=== PATIENT | female | born 1930 | race Caucasian/White ===

== ENCOUNTER → 2016-08-13 | Outpatient (CLI) | payer MEDICARE, BC ==
[~2016-08-13] MED LIST: AMLODIPINE BESY10 MG PO; ASPIRIN 81M81 MG/TA2 PO; BYSTOLIC10 MG PO; CALCARB 600 W/V1 TA1 PO; CATAPRES 0.1MG0.1 MG PO; CLONIDINE0.1 MG PO; COLACE 100100 MG/CAP PO; EUCERIN1 CRE TP; EXELON4.6 MG/24 TD; EXELON9.5 MG/21 TD; FOSAMAX 70MG TA70 MG PO; GOOD NEIGHBOR325 MG PO; HECTOROL PO; HYDROCHLOROTH12.5 M1 PO; LASIX20 MG PO; LEVOTHROID0.05 MG PO; LEVOTHYROXIN0.075 MG PO; LEXAPRO20 MG PO; LIPITOR 40MG TA40 MG PO; LISINOPRIL20 MG PO; LISINOPRIL40 MG PO; NORVASC 10MG10 MG PO; OMEPRAZOLE20 MG PO; PRINIVIL40 MG PO; TEKTURNA150 MG PO; TYLENOL 325MG325 MG PO; [UNRECOGNIZED DRUG - OTHER] CHEW
== END ==
LOC: LAB 07:22
DX: N18.4 Chronic kidney disease, stage 4 (severe) (principal); N25.81 Secondary hyperparathyroidism of renal origin

== ENCOUNTER 2016-08-29 15:51 | Emergency (ER) | payer MEDICARE, BC ==
[~2016-08-29 15:51] MED LIST changes: -AMLODIPINE BESY10 MG PO; -CATAPRES 0.1MG0.1 MG PO; -EUCERIN1 CRE TP; -HECTOROL PO; -TYLENOL 325MG325 MG PO
[2016-08-29] MEDS ORDERED: EXELON9.5 MG/21 TD (16:53)
[2016-08-29] MEDS ORDERED: HECTOROL PO (16:53)
[2016-08-29] MEDS ORDERED: AMLODIPINE BESY10 MG PO (16:54)
[2016-08-29] MEDS ORDERED: EUCERIN1 CRE TP (16:55)
[2016-08-29] MEDS ORDERED: TYLENOL 325MG325 MG PO ×2 (16:55→16:56)
[2016-08-29] MEDS ORDERED: CATAPRES 0.1MG0.1 MG PO (16:56)
== END 2016-08-29 18:08 | disposition home or self-care (01) ==
LOC: ED 15:51
DX: S00.83XA Contusion of other part of head, initial encounter (principal); F03.90 Unspecified dementia, unspecified severity, without behavioral disturbance, psychotic disturbance, mood disturbance, and anxiety; W19.XXXA Unspecified fall, initial encounter; Y92.018 Other place in single-family (private) house as the place of occurrence of the external cause

== ENCOUNTER → 2016-12-15 | Outpatient (CLI) | payer MEDICARE, BC, MEDICAID ==
[2016-08-29 18:07] VITALS: BP 142/82
[~2016-12-15] MED LIST changes: +AMLODIPINE BESY10 MG PO; +CATAPRES 0.1MG0.1 MG PO; +EUCERIN1 CRE TP; +HECTOROL PO; +TYLENOL 325MG325 MG PO
== END ==
LOC: LAB 07:51
DX: N18.4 Chronic kidney disease, stage 4 (severe) (principal)

== ENCOUNTER → 2017-06-27 | Outpatient (CLI) | payer MEDICARE, BC, MEDICAID ==
[2016-08-29 18:07] VITALS: BP 142/82
[2017-06-27 08:06] LABS: BUN/CREATININE RATIO 21.6 (6.0-26.0); CALCIUM 9.6 mg/dL (8.4-10.2); POTASSIUM 4.2 mmol/L (3.6-5.0)
== END ==
LOC: LAB 07:00
PROVIDERS: Family Medicine
DX: I50.32 Chronic diastolic (congestive) heart failure (principal)

== ENCOUNTER 2017-09-30 09:14 | Emergency (ER) | payer MEDICARE, BC, MEDICAID ==
[~2017-09-30] VITALS: Wt 51.4 kg
[2017-09-30] MEDS ORDERED: LIPITOR20 M2 PO (09:54)
[2017-09-30] MEDS ORDERED: LEXAPRO 10MG10 MG PO (09:54)
[2017-09-30] MEDS ORDERED: GOOD SENSE400 MG/5 M PO (09:56)
[2017-09-30] MEDS ORDERED: VIACTIV PO (09:57)
[2017-09-30] MEDS ORDERED: THROAT DROPS6 MG MM (09:57)
[2017-09-30] MEDS ORDERED: MACROBID 100 M100 MG PO (09:58)
[2017-09-30 10:05] LABS: URINE APPEARANCE CLOUDY; URINE BILIRUBIN NEGATIVE (NEGATIVE); URINE BLOOD 250 ery/uL (NEGATIVE); URINE COLOR YELLOW; URINE GLUCOSE NEGATIVE (NEGATIVE); URINE KETONE NEGATIVE (NEGATIVE); URINE LEUKOCYTE ESTERASE 2+ (NEGATIVE); URINE NITRATE POSITIVE (NEGATIVE); URINE PROTEIN(semi-quant) 2+ mg/dL (NEGATIVE); URINE UROBILINOGEN NORMAL (NORMAL)
[2017-09-30 10:06] LABS: URINE WBC >50 /hpf (0-3)
[2017-09-30 10:08] LABS: HEMATOCRIT 29.9 % (37.0-47.0); MEAN CELL VOLUME 95 fl (78-100); MEAN CORPUSCULAR HEMOGLOBIN 29 pg (27-31); MEAN CORPUSCULAR HGB CONC 30 g/dL (33-37); MEAN PLATELET VOLUME 9.8 fl (7.4-10.4); PLATELET COUNT 269 K/mm3 (130-400); RED BLOOD COUNT 3.16 M/mm3 (4.10-5.30); RED CELL DISTRIBUTION WIDTH 14.8 % (11.5-14.5); WHITE BLOOD COUNT 10.2 K/mm3 (4.8-10.8)
[2017-09-30 10:21] LABS: ALBUMIN 3.9 g/dL (3.5-5.0); BUN/CREATININE RATIO 23.8 (6.0-26.0); CALCIUM 9.8 mg/dL (8.4-10.2); POTASSIUM 4.8 mmol/L (3.6-5.0); TOTAL BILIRUBIN 0.4 mg/dL (0.2-1.3); TOTAL PROTEIN 7.7 g/dL (6.3-8.2)
[2017-09-30 10:30] LABS: BAND 2 % (0-10); LYMPHOCYTE 3 % (20-51); MONOCYTE 4 % (3-10); NEUTROPHILS 91 % (42-75)
[2017-09-30 13:30] VITALS: BP 146/51
== END 2017-09-30 13:30 | disposition short-term general hospital (02) ==
LOC: ED 09:14
PROVIDERS: Nurse Practitioner
DX: N39.0 Urinary tract infection, site not specified (principal); N19 Unspecified kidney failure; I11.0 Hypertensive heart disease with heart failure; I50.9 Heart failure, unspecified; F03.90 Unspecified dementia, unspecified severity, without behavioral disturbance, psychotic disturbance, mood disturbance, and anxiety; E78.5 Hyperlipidemia, unspecified; E03.9 Hypothyroidism, unspecified; M81.0 Age-related osteoporosis without current pathological fracture; Z66 Do not resuscitate; Z87.440 Personal history of urinary (tract) infections; Z79.82 Long term (current) use of aspirin
CPT/HCPCS: J0696; J7040

== ENCOUNTER → 2017-11-03 | Outpatient (CLI) | payer MEDICARE, BC, MEDICAID ==
[~2017-11-03] MED LIST changes: +GOOD SENSE400 MG/5 M PO; +LEXAPRO 10MG10 MG PO; +LIPITOR20 M2 PO; +MACROBID 100 M100 MG PO; +THROAT DROPS6 MG MM; +VIACTIV PO
[2017-11-03 07:46] LABS: BUN/CREATININE RATIO 17.2 (6.0-26.0); CALCIUM 9.1 mg/dL (8.4-10.2); POTASSIUM 4.5 mmol/L (3.6-5.0)
== END ==
LOC: LAB 06:35
PROVIDERS: Family Medicine
DX: R79.89 Other specified abnormal findings of blood chemistry (principal)

== ENCOUNTER → 2018-01-14 | Outpatient (CLI) | payer MEDICARE, BC, MEDICAID ==
[2018-01-14 19:41] LABS: PH-URINE 8.5 (5.0 - 8.0); URINE APPEARANCE CLOUDY; URINE BILIRUBIN NEGATIVE (NEGATIVE); URINE BLOOD 250 ery/uL (NEGATIVE); URINE COLOR YELLOW; URINE GLUCOSE NEGATIVE (NEGATIVE); URINE KETONE NEGATIVE (NEGATIVE); URINE LEUKOCYTE ESTERASE 2+ (NEGATIVE); URINE NITRATE NEGATIVE (NEGATIVE); URINE PROTEIN(semi-quant) 2+ mg/dL (NEGATIVE); URINE UROBILINOGEN NORMAL (NORMAL); URINE WBC >50 /hpf (0-3)
[2018-01-14 19:42] LABS: URINE MUCUS PRESENT (NOT PRESENT)
== END ==
LOC: LAB 15:45
PROVIDERS: Family Medicine
DX: N39.0 Urinary tract infection, site not specified (principal); R31.9 Hematuria, unspecified

== ENCOUNTER → 2018-02-02 | Outpatient (CLI) | payer MEDICARE, BC, MEDICAID ==
[2018-02-02 06:18] LABS: HEMOGLOBIN 9.9 g/dL (12.5-16.0); MEAN PLATELET VOLUME 10.2 fl (7.4-10.4); RED BLOOD COUNT 3.38 M/mm3 (4.10-5.30); RED CELL DISTRIBUTION WIDTH 13.9 % (11.5-14.5); WHITE BLOOD COUNT 6.1 K/mm3 (4.8-10.8)
[2018-02-02 06:19] LABS: PH-URINE 6.5 (5.0 - 8.0); URINE APPEARANCE CLOUDY; URINE BILIRUBIN NEGATIVE (NEGATIVE); URINE BLOOD 50 ery/uL (NEGATIVE); URINE COLOR YELLOW; URINE GLUCOSE NEGATIVE (NEGATIVE); URINE KETONE NEGATIVE (NEGATIVE); URINE LEUKOCYTE ESTERASE 2+ (NEGATIVE); URINE NITRATE NEGATIVE (NEGATIVE); URINE PROTEIN(semi-quant) 2+ mg/dL (NEGATIVE); URINE UROBILINOGEN NORMAL (NORMAL); URINE WBC >50 /hpf (0-3)
[2018-02-02 06:32] LABS: BUN/CREATININE RATIO 28.2 (6.0-26.0); CALCIUM 8.7 mg/dL (8.4-10.2); POTASSIUM 4.1 mmol/L (3.6-5.0)
== END ==
LOC: LAB 05:45
PROVIDERS: Nurse Practitioner Family
DX: N18.9 Chronic kidney disease, unspecified (principal); D64.9 Anemia, unspecified; I50.32 Chronic diastolic (congestive) heart failure; N39.0 Urinary tract infection, site not specified

== ENCOUNTER → 2018-06-28 | Outpatient (CLI) | payer MEDICARE, BC, MEDICAID ==
[2018-06-28 06:46] LABS: CALCIUM 9.4 mg/dL (8.4-10.2)
== END ==
LOC: LAB 05:40
PROVIDERS: Family Medicine
DX: N18.9 Chronic kidney disease, unspecified (principal)

== ENCOUNTER → 2018-07-13 | Outpatient (CLI) | payer MEDICARE, BC, MEDICAID ==
[2018-07-13 05:54] LABS: CALCIUM 9.2 mg/dL (8.4-10.2); POTASSIUM 3.9 mmol/L (3.6-5.0)
== END ==
LOC: LAB 05:15
PROVIDERS: Family Medicine
DX: R79.89 Other specified abnormal findings of blood chemistry (principal)

== ENCOUNTER → 2018-08-14 | Outpatient (CLI) | payer MEDICARE, BC, MEDICAID | LOC: RAD 13:51 | DX: I70.0 Atherosclerosis of aorta (principal); I25.10 Atherosclerotic heart disease of native coronary artery without angina pectoris; R91.8 Other nonspecific abnormal finding of lung field ==

== ENCOUNTER → 2018-08-24 | Outpatient (CLI) | payer MEDICARE, BC, MEDICAID ==
[2018-08-24 07:56] LABS: CALCIUM 8.9 mg/dL (8.4-10.2); POTASSIUM 4.5 mmol/L (3.6-5.0)
== END ==
LOC: LAB 07:32
PROVIDERS: Internal Medicine
DX: N18.3 Chronic kidney disease, stage 3 (moderate) (principal)

== ENCOUNTER 2018-12-07 14:42 | Emergency (ER) | payer MEDICARE, BC, MEDICAID ==
[2018-12-07] MEDS ORDERED: ALBUTEROL1.25 MG/3 IH (14:54)
[2018-12-07] MEDS ORDERED: ATORVASTATIN CA40 MG PO (14:55)
[2018-12-07 15:19] LABS: EOS # 0.4 (0.04-0.40); EOS % 6.5 % (1.0-5.0); HEMATOCRIT 39.2 % (37.0-47.0); HEMOGLOBIN 12.1 g/dL (12.5-16.0); LYMPH# 1.2 (1.50-4.00); MEAN CELL VOLUME 92 fl (78-100); MEAN CORPUSCULAR HEMOGLOBIN 28 pg (27-31); MEAN CORPUSCULAR HGB CONC 31 g/dL (33-37); MEAN PLATELET VOLUME 9.6 fl (7.4-10.4); MONO # 0.7 (0.20-0.80); NEU # 4.3 (1.40-6.50); PLATELET COUNT 228 K/mm3 (130-400); RED BLOOD COUNT 4.27 M/mm3 (4.10-5.30); RED CELL DISTRIBUTION WIDTH 13.9 % (11.5-14.5); WHITE BLOOD COUNT 6.6 K/mm3 (4.8-10.8)
[2018-12-07 15:30] LABS: CALCIUM 10.1 mg/dL (8.3-10.5); POTASSIUM 4.4 mmol/L (3.5-5.1); TOTAL BILIRUBIN 0.3 mg/dL (0.2-1.2); TOTAL PROTEIN 7.8 g/dL (6.2-8.1)
[2018-12-07 17:13] VITALS: BP 160/69
== END 2018-12-07 17:11 ==
LOC: ED 14:42
PROVIDERS: Nurse Practitioner Family
DX: R05 Cough (principal); I50.9 Heart failure, unspecified; I13.0 Hypertensive heart and chronic kidney disease with heart failure and stage 1 through stage 4 chronic kidney disease, or unspecified chronic kidney disease; N18.9 Chronic kidney disease, unspecified; E78.5 Hyperlipidemia, unspecified; E03.9 Hypothyroidism, unspecified; K21.9 Gastro-esophageal reflux disease without esophagitis; F03.90 Unspecified dementia, unspecified severity, without behavioral disturbance, psychotic disturbance, mood disturbance, and anxiety; Z86.73 Personal history of transient ischemic attack (TIA), and cerebral infarction without residual deficits; Z98.890 Other specified postprocedural states; Z79.82 Long term (current) use of aspirin

== ENCOUNTER 2019-01-07 14:24 | Emergency (ER) | payer MEDICARE, BC, MEDICAID ==
[~2019-01-07] VITALS: Ht 142.2 cm; Wt 59.2 kg
[~2019-01-07 14:24] MED LIST changes: +ALBUTEROL1.25 MG/3 IH; +ATORVASTATIN CA40 MG PO
[2019-01-07] MEDS ORDERED: ASPIRIN E.C. 8181 MG (14:56)
[2019-01-07] MEDS ORDERED: MIRALAX17 GM PO (14:58)
[2019-01-07] MEDS ORDERED: LEXAPRO5 MG PO (14:58)
[2019-01-07] MEDS ORDERED: CALCIUM + VIT1 EACH PO (14:59)
[2019-01-07] MEDS ORDERED: SILACE60 MG/15 M PO (15:00)
[2019-01-07] MEDS ORDERED: CATAPRES0.1 M1 PO (15:01)
[2019-01-07 15:46] LABS: HEMATOCRIT 33.5 % (37.0-47.0); HEMOGLOBIN 10.5 g/dL (12.5-16.0); MEAN CELL VOLUME 92 fl (78-100); MEAN CORPUSCULAR HEMOGLOBIN 29 pg (27-31); MEAN CORPUSCULAR HGB CONC 31 g/dL (33-37); MEAN PLATELET VOLUME 9.7 fl (7.4-10.4); PLATELET COUNT 241 K/mm3 (130-400); RED BLOOD COUNT 3.66 M/mm3 (4.10-5.30); WHITE BLOOD COUNT 13.1 K/mm3 (4.8-10.8)
[2019-01-07 15:56] LABS: ALBUMIN 3.7 g/dL (3.4-4.8)
[2019-01-07 15:58] LABS: CALCIUM 9.4 mg/dL (8.3-10.5)
[2019-01-07 15:59] LABS: TOTAL PROTEIN 7.5 g/dL (6.2-8.1)
[2019-01-07 16:01] LABS: TOTAL BILIRUBIN 0.4 mg/dL (0.2-1.2)
[2019-01-07 16:07] LABS: LYMPHOCYTE 6 % (20-51); MONOCYTE 5 % (3-10); NEUTROPHILS 88 % (42-75)
[2019-01-07] MEDS ORDERED: CEFDINIR300 MG PO (16:52)
[2019-01-07 17:07] VITALS: BP 129/69
== END 2019-01-07 17:17 | disposition home or self-care (01) ==
LOC: ED 14:24
PROVIDERS: Family Medicine
DX: J40 Bronchitis, not specified as acute or chronic (principal); I50.9 Heart failure, unspecified; F03.90 Unspecified dementia, unspecified severity, without behavioral disturbance, psychotic disturbance, mood disturbance, and anxiety; I10 Essential (primary) hypertension; Z90.710 Acquired absence of both cervix and uterus; Z98.890 Other specified postprocedural states; Z79.82 Long term (current) use of aspirin
CPT/HCPCS: J0696; J1940

== ENCOUNTER → 2019-01-10 | Outpatient (CLI) | payer MEDICARE, BC ==
[2019-01-07 17:07] VITALS: BP 129/69
[~2019-01-10] MED LIST changes: +ASPIRIN E.C. 8181 MG; +CALCIUM + VIT1 EACH PO; +CATAPRES0.1 M1 PO; +CEFDINIR300 MG PO; +LEXAPRO5 MG PO; +MIRALAX17 GM PO; +SILACE60 MG/15 M PO
[2019-01-11 00:23] LABS: CALCIUM 9.2 mg/dL (8.3-10.5)
[2019-01-11 00:36] LABS: HEMATOCRIT 29.6 % (37.0-47.0); HEMOGLOBIN 9.2 g/dL (12.5-16.0); MEAN PLATELET VOLUME 9.5 fl (7.4-10.4); RED BLOOD COUNT 3.23 M/mm3 (4.10-5.30); RED CELL DISTRIBUTION WIDTH 13.8 % (11.5-14.5); WHITE BLOOD COUNT 4.6 K/mm3 (4.8-10.8)
== END ==
LOC: LAB 23:43
PROVIDERS: Family Medicine
DX: I50.9 Heart failure, unspecified (principal); J20.9 Acute bronchitis, unspecified; F03.90 Unspecified dementia, unspecified severity, without behavioral disturbance, psychotic disturbance, mood disturbance, and anxiety

== ENCOUNTER 2019-02-24 12:51 | Emergency (ER) | payer MEDICARE, BC ==
[2019-02-24 13:30] LABS: HEMATOCRIT 38.2 % (37.0-47.0); HEMOGLOBIN 12.1 g/dL (12.5-16.0); MEAN CELL VOLUME 90 fl (78-100); MEAN CORPUSCULAR HEMOGLOBIN 29 pg (27-31); MEAN CORPUSCULAR HGB CONC 32 g/dL (33-37); MEAN PLATELET VOLUME 9.8 fl (7.4-10.4); PLATELET COUNT 289 K/mm3 (130-400); RED BLOOD COUNT 4.24 M/mm3 (4.10-5.30); RED CELL DISTRIBUTION WIDTH 14.9 % (11.5-14.5)
[2019-02-24 13:51] LABS: LYMPHOCYTE 5 % (20-51); MONOCYTE 5 % (3-10); NEUTROPHILS 90 % (42-75)
[2019-02-24 13:59] LABS: ALBUMIN 4.1 g/dL (3.4-4.8); POTASSIUM 4.2 mmol/L (3.5-5.1)
[2019-02-24 14:00] LABS: CALCIUM 10.1 mg/dL (8.3-10.5)
[2019-02-24 14:01] LABS: TOTAL PROTEIN 8.5 g/dL (6.2-8.1)
[2019-02-24 14:03] LABS: TOTAL BILIRUBIN 0.5 mg/dL (0.2-1.2)
[2019-02-24] MEDS ORDERED: MORGIDOX 1X100100 MG PO (16:20)
[2019-02-24] MEDS ORDERED: AUGMENTIN 500-1 EACH PO (16:20)
[2019-02-24] MEDS ORDERED: PREDNISONE10 MG PO (16:24)
[2019-02-24 17:00] VITALS: BP 134/54
== END 2019-02-24 17:00 | disposition home or self-care (01) ==
LOC: ED 12:51
PROVIDERS: Family Medicine
DX: J18.9 Pneumonia, unspecified organism (principal); R13.10 Dysphagia, unspecified; F03.90 Unspecified dementia, unspecified severity, without behavioral disturbance, psychotic disturbance, mood disturbance, and anxiety; I11.0 Hypertensive heart disease with heart failure; I50.9 Heart failure, unspecified

== ENCOUNTER → 2019-03-05 | Day surgery (SDC) | payer MEDICARE, BC ==
[2019-02-24 17:00] VITALS: BP 134/54
[~2019-03-05] MED LIST changes: +AUGMENTIN 500-1 EACH PO; +MORGIDOX 1X100100 MG PO; +PREDNISONE10 MG PO
== END ==
LOC: MSO 07:11
DX: R13.10 Dysphagia, unspecified (principal); K44.9 Diaphragmatic hernia without obstruction or gangrene; K29.70 Gastritis, unspecified, without bleeding; G30.9 Alzheimer's disease, unspecified; F02.80 Dementia in other diseases classified elsewhere, unspecified severity, without behavioral disturbance, psychotic disturbance, mood disturbance, and anxiety; Z79.899 Other long term (current) drug therapy; Z79.82 Long term (current) use of aspirin; I11.0 Hypertensive heart disease with heart failure; I50.30 Unspecified diastolic (congestive) heart failure; K21.9 Gastro-esophageal reflux disease without esophagitis; M81.0 Age-related osteoporosis without current pathological fracture; Z86.73 Personal history of transient ischemic attack (TIA), and cerebral infarction without residual deficits; E07.9 Disorder of thyroid, unspecified
CPT/HCPCS: 00731; J2704; J7120

== ENCOUNTER → 2019-05-23 | Outpatient (CLI) | payer MEDICARE, BC | LOC: LAB 05:20 | DX: E03.9 Hypothyroidism, unspecified (principal) ==